=== PATIENT | male | born 1985 | race Caucasian/White ===

== ENCOUNTER 2017-03-27 16:50 | Emergency (ER) | payer SELFPAY ==
[2017-03-27 17:15] VITALS: BP 119/77
--- NOTE | 2017-03-27 18:46 | UC ---
UC General HPI - HPI Summary HPI Summary: Patient states he was called by the [facility] as a result of strong suspicion of pertussis of his young son, who was swabbed and the results are pending. He states he was told to get a RX for zpak. He otherwise is feeling well. - History of Current Complaint Chief Complaint: UCGeneralIllness Stated Complaint: PRESCRIPTION Time Seen by Provider: 03/27/17 17:56 Hx Obtained From: Patient Pain Intensity: 0 - Allergy/Home Medications Allergies/Adverse Reactions: Allergies Allergy/AdvReac Type Severity Reaction Status Date / Time No Known Allergies Allergy Verified 03/27/17 17:15 PMH/Surg Hx/FS Hx/Imm Hx Previously Healthy: Yes - Surgical History Surgical History: None - Family History Known Family History: Positive: None - Social History Occupation: Employed Part-time Lives: Alone Alcohol Use: Rare Substance Use Type: None Smoking Status (MU): Never Smoked Tobacco Review of Systems All Other Systems Reviewed And Are Negative: Yes Physical Exam Triage Information Reviewed: Yes Appearance: Well-Appearing Vital Signs: Initial Vital Signs Temp 97.3 F 03/27/17 17:11 Pulse 74 03/27/17 17:11 Resp 16 03/27/17 17:11 BP 119/77 03/27/17 17:11 Pulse Ox 99 03/27/17 17:11 Vital Signs Reviewed: Yes Eye Exam: Normal ENT Exam: Normal Neck exam: Normal Respiratory Exam: Normal Cardiovascular Exam: Normal Abdominal Exam: Normal Neurological Exam: Normal Skin Exam: Normal Course/Dx - Course Course Of Treatment: Patient presents for prophylaxis for postexposure to suspected pertussis. He was well, and given an RX for Zpak which was confirmed by the [facility]. - Differential Dx - Multi-Symptom Differential Diagnoses: Other - postexposure prophylaxis Provider Diagnoses: post exposure prophylaxis Discharge - Discharge Plan Condition: Stable Disposition: HOME Prescriptions: Azithromycin TAB* [Zithromax TAB (Z-SUGAR) 250 mg #6 tabs] 250 mg PO DAILY #6 tab Patient Education Materials: Postexposure Prophylaxis (ED) Referrals: No Primary Care Phys,NOPCP [Primary Care Provider] - Additional Instructions: Patient was sent by [facility] for Zpak for questionable exposure to son who was swabbed for pertussis and they are waiting for test results. I will call [facility] and call patient of phone and send RX once confirmed.
== END 2017-03-27 18:40 | disposition home or self-care (01) ==
LOC: UCEAST 16:50
DX: Z20.818 Contact with and (suspected) exposure to other bacterial communicable diseases (principal)
CPT/HCPCS: 99212; G0463